=== PATIENT | male | born 1980 | race Caucasian/White ===

== ENCOUNTER 2016-12-06 11:49 | Emergency (ER) | payer SELFPAY ==
[2016-12-06 12:14] VITALS: BP 134/75; PULSE 85; TEMP 97.9; BMI 24.7
[2016-12-06] MEDS ORDERED: OXYCODONE/APAP 5/325MG COMBO TABLET PO ONE (14:10)
[2016-12-06] MEDS ORDERED: OXYCODONE/APAP 5/325MG COMBO TABLET ONE (14:27)
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
== END 2016-12-06 15:11 | disposition home or self-care (01) ==
LOC: JER 11:49 → JERFT 11:49 → JER 15:11
PROC: 0H98XZZ Drainage of Buttock Skin, External Approach (ICD-10-PCS; principal; 2016-12-06)
DX: L02.31 Cutaneous abscess of buttock (principal); F17.210 Nicotine dependence, cigarettes, uncomplicated
CPT/HCPCS: 87070; 87186; 87205; 99281-25

== ENCOUNTER 2016-12-10 14:47 | Emergency (ER) | payer SELFPAY ==
[2016-12-10 15:10] VITALS: BP 116/67; PULSE 77; TEMP 97.9; BMI 22.8
--- NOTE | 2016-12-10 15:57 | PDOC ---
Suture Removal/Wound Check HPI - History of Present Illness Chief Complaint: Revisit,Wound Recheck Stated Complaint: SUTURE/STAPLE REMOVAL Time Seen by Provider: 12/10/16 15:27 History Source: Yes: Patient Treated at: [facility] Date of Last ED visit: 12/06/16 - Previous ED Treatment Type of procedure performed on last visit: Yes: I&D of Abscess Past History - Past Medical History Allergies/Adverse Reactions: Allergies No Known Allergies Allergy (Verified 12/06/16 12:10) Home Medications: Ambulatory Orders Sulfamethoxazole/Trimethoprim [Bactrim Ds -] 1 tab PO DAILY 12/10/16 - Social History Smoking Status: Current every day smoker Number of Ciarettes Per Day: 2 Suture Removal/Wound Check PE - Physical Exam Laceration/Wound Check Symptoms: denies: Fever, Chills, Redness Comments: 12/10/16 16:13 3x2 cm induration to L gluteus, ?fluctuance, no erythema *Review of Systems - Review of Systems Constitutional: No: Chills, Fever Integumentary: No: Erythema Medical Decision Making - Medical Decision Making 12/10/16 15:55 86-year-old male seen in ED 4 days ago for left gluteal abscess, status post I and D and currently on Bactrim which is sensitive on wound culture, here for wound check today and complaining of possible packing stuck in wound. Pt concerned because he states " a long piece" of packing was placed into wound but only "a small piece" came out at home and wound have already healed. Continues to have pain but sig improved since I&D. No f/c. Pt well dayday and stable w/ 3x2cm induration to L gluteus. S/p I&D today w/ only bloody secretion , no pus and no packing visualized grossly or retrieved on wound exploration. Dc w/ reassurance. To cont abx and return to ED as needed 12/10/16 16:10 *DC/Admit/Observation/Transfer Diagnosis at time of Disposition: Wound check, abscess - Discharge Dispostion Disposition: HOME Condition at time of disposition: Good - Patient Instructions Additional Instructions: Continue to take antibiotics and return for wound check
== END 2016-12-10 16:17 | disposition home or self-care (01) ==
LOC: JERFT 14:47
DX: Z09 Encounter for follow-up examination after completed treatment for conditions other than malignant neoplasm (principal)
CPT/HCPCS: 99281-25

== ENCOUNTER 2017-07-19 06:29 | Emergency (ER) | payer SELFPAY ==
[2017-07-19 06:52] VITALS: BMI 25.4
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
[2017-07-19] MEDS ORDERED: IBUPROFEN 400 MG TABLET (FP) PO ONE ×2 (07:35→07:38)
[2017-07-19] MEDS ORDERED: LIDOCAINE HCL 1%, 10 MG/ML (20ML VIAL) ONE (07:40)
[2017-07-19] MEDS ORDERED: traMADol HCL 50 MG TABLET PO ONE (08:21)
[2017-07-19] MEDS ORDERED: traMADol HCL 50 MG TABLET ONE (08:22)
[2017-07-19 08:27] VITALS: BP 124/67; PULSE 78; TEMP 98.2
== END 2017-07-19 08:25 | disposition home or self-care (01) ==
LOC: JER 06:29
PROC: 0H98XZZ Drainage of Buttock Skin, External Approach (ICD-10-PCS; principal; 2017-07-19)
DX: L02.31 Cutaneous abscess of buttock (principal)
CPT/HCPCS: 99281-25

== ENCOUNTER 2017-08-15 13:01 | Emergency (ER) | payer SELFPAY ==
[2017-08-15 13:07] VITALS: BP 135/83; PULSE 87; TEMP 98.2; BMI 27.3
[2017-08-15] MEDS ORDERED: METHOCARBAMOL 500 MG TABLET PO ONE (14:06)
[2017-08-15] MEDS ORDERED: IBUPROFEN 600 MG TABLET (FP) PO ONE ×2 (14:06→14:12)
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
[2017-08-15] MEDS ORDERED: METHOCARBAMOL 500 MG TABLET ONE (14:13)
== END 2017-08-15 15:21 | disposition home or self-care (01) ==
LOC: JERFT 13:01
DX: J10.1 Influenza due to other identified influenza virus with other respiratory manifestations (principal)
CPT/HCPCS: 87804; 99281-25

== ENCOUNTER 2021-06-10 03:43 | Emergency (ER) | payer SELFPAY ==
[2021-06-10 04:00] VITALS: BP 119/78; PULSE 75; TEMP 97.6; BMI 26.7
[2021-06-10] MEDS ORDERED: KETOROLAC TROMETHAMINE 30 MG/1 ML VIAL IM ONE (05:29)
[2021-06-10] MEDS ORDERED: KETOROLAC TROMETHAMINE 30 MG/1 ML VIAL ONE (05:49)
[2021-06-10] MEDS ORDERED: IBUPROFEN 600 MG TABLET (FP) PO ONE ×2 (05:52→05:54)
[2021-06-10] MEDS ORDERED: LIDOCAINE 5% TOPICAL PATCH TP ONE (05:54)
[2021-06-10] MEDS ORDERED: LIDOCAINE 5% TOPICAL PATCH ONE (05:54)
[2021-06-10] MEDS ORDERED: diazePAM 5 MG TABLET PO ONE (06:12)
[2021-06-10] MEDS ORDERED: diazePAM 5 MG TABLET ONE (06:37)
[2021-06-10] MEDS ORDERED: LIDOCAINE PATCH REMOVAL MC ONE (18:00)
== END 2021-06-10 06:44 | disposition home or self-care (01) ==
LOC: JER 03:43
PROC: 3E0233Z Introduction of Anti-inflammatory into Muscle, Percutaneous Approach (ICD-10-PCS; principal; 2021-06-10)
DX: M25.511 Pain in right shoulder (principal)
CPT/HCPCS: 73030-TC-RT-FY; 99284-25